=== PATIENT | male | born 1935 | race Caucasian/White ===

== ENCOUNTER 2016-11-29 06:23 | Observation (INO) | payer OTHER ==
[2016-11-29] MEDS ORDERED: FAMOTIDINE 20 MG TAB PO ONE (06:30)
[2016-11-29] MEDS ORDERED: NS 1,000 ML IV ONE (06:30)
[2016-11-29] MEDS ORDERED: ASPIRIN EC 325 MG TAB PO ONE ×2 (06:30→06:52)
[2016-11-29] MEDS ORDERED: diphenhydrAMINE 25 MG CAP PO ONE ×2 (06:30→06:52)
[2016-11-29] MEDS ORDERED: DIAZEPAM 5 MG TAB PO ONE (06:30)
[2016-11-29] MEDS ORDERED: DIAZEPAM 5 MG TAB ONE (06:52)
[2016-11-29] MEDS ORDERED: FAMOTIDINE 20 MG TAB ONE (06:52)
--- NOTE | 2016-11-29 06:55 | CPEKG ---
Heart Rate: 58 RR Interval: 1034 P-R Interval: 184 QRSD Interval: 108 QT Interval: 436 QTC Interval: 429 P [place]: 8 QRS [place]: -45 T Wave [place]: 109 EKG Severity - ABNORMAL ECG - EKG Impression: SINUS RHYTHM EKG Impression: VENTRICULAR PREMATURE COMPLEX EKG Impression: LAD, CONSIDER LEFT ANTERIOR FASCICULAR BLOCK EKG Impression: BORDERLINE T ABNORMALITIES, LATERAL LEADS Electronically Signed By: Beto Armstrong 29-Nov-2016 16:59:59
[2016-11-29 07:07] LABS: % IMMATURE GRANULYOCYTES 0.3 % (0.0-1.1); ABSOLUTE IMMATURE GRANULOCYTES 0.02 10^3/uL (0.00-0.10); ADD DIFF? NO; ADD MORPH? NO; ADD SCAN? NO; ATYPICAL LYMPHOCYTE FLAG 10 (0-99); FRAGMENT RBC FLAG 0 (0-99); HEMATOCRIT 47.7 % (40.0-51.0); HEMOGLOBIN 16.4 g/dL (13.7-17.5); LEFT SHIFT FLG 0 (0-99); LIPEMIA HEMOLYSIS FLAG 90 (0-99); MEAN CELL HEMOGLOBIN 29.4 pg (27.9-34.1); MEAN CELL HEMOGLOBIN CONCENTR. 34.4 g/dL (32.4-36.7); MEAN CELL VOLUME 85.6 fL (81.5-99.8); MEAN PLATELET VOLUME 9.1 fL (8.7-11.7); PLATELET CLUMPS FLAG 10 (0-99); PLATELET COUNT 253 10^3/uL (150-400); RED BLOOD CELL COUNT 5.57 10^6/uL (4.40-6.38); RED CELL DISTRIBUTION WIDTH 14.9 % (11.5-15.2)
[2016-11-29 07:08] LABS: INR 1.13 (0.83-1.16); PROTIME(PATIENT) 14.4 SEC (12.0-15.0)
[2016-11-29 07:09] LABS: ANION GAP 9 mEq/L (8-16); CALCIUM 8.8 mg/dL (8.5-10.4); CARBON DIOXIDE 25 mEq/l (22-31); CHLORIDE 107 mEq/L (97-110); CHOLESTEROL 181 mg/dL (140-220); CHOLESTEROL/HDL RATIO 4.76 RATIO (1.00-4.97); GLOMERULAR FILTRATION RATE > 60; GLUCOSE 93 mg/dL (70-100); HIGH DENSITY LIPOPROTEIN 38 mg/dL (40-65); LDL/HDL RATIO 3.24 RATIO (1.00-3.64); LOW DENSITY LIPOPROTEIN 123 mg/dL (80-100); MAGNESIUM 2.1 mg/dL (1.6-2.3); NON-HIGH DENSITY LIPOPROTEIN 143 mg/dL (90-129); POTASSIUM 3.9 mEq/L (3.5-5.2); SODIUM 141 mEq/L (134-144); TRIGLYCERIDE 101 mg/dL (40-150); VERY LOW DENSITY LIPOPROTEINS 20 mg/dL (8-25)
[2016-11-29] MEDS ORDERED: MIDAZOLAM 2 MG/2 ML VIAL ONE (07:39)
[2016-11-29] MEDS ORDERED: fentaNYL 100 MCG/2 ML INJ ONE (07:39)
[2016-11-29] MEDS ORDERED: HEPARIN 10,000 UNIT/10 ML MDV ONE (07:39)
[2016-11-29] MEDS ORDERED: VERAPAMIL 5 MG/2 ML VIAL ONE (07:39)
[2016-11-29] MEDS ORDERED: LIDOCAINE 1% 30 ML SDV ONE (07:39)
[2016-11-29] MEDS ORDERED: IOPAMIDOL (ISOVUE-370) 150 ML BTL IV ONE ×3 (07:40→09:32)
--- NOTE | 2016-11-29 08:41 | PDDXCAT ---
Diagnostic Cath Note - . Date: 11/29/16 Crew Team Member: Luis Indication: other (CCS Class II angina (bilateral arm pressure/pain that radiates into the neck and jaw)) - Procedure Access: right wrist (A plethysmography trace assisted Rolando's Test was used to document dual artery supply to the hand and index finger prior to access. Due to severe tortuosity in the brachiocephalic, we abandoned the right radial approach. The right groin was instead prepped and draped in a sterile fashion.) Procedure: left heart catheterization, coronary angiography, left ventriculogram , other (Intravascular Ultrasound (IVUS)) - Materials Left Heart Cath size: 5F Left Heart Cath materials: JL3.5, JL4.0, pigtail, other (Victorious 190 cm guide wire) - Findings-Left Heart Catheterization LM: 6 mm in size. Bifurcates into an LAD and circumflex system. There is a distal 30% obstruction. REZA III flow. IVUS of the left main did not reveal flow -limiting disease. LAD: 4.5 mm in size. The LAD is heavily calcified with evidence of diastreaming in the proximal portion. Maximum luminal stenosis of 45-50% in the mid LAD via angiography; however, IVUS was performed in the mid LAD revealed maximimal luminal stenosis of 72% with REZA III flow. LCX: 4 mm in size. No flow-limiting disease is identified with REZA III flow throughout. There are luminal irregularities consistent with atherosclerosis. RCA: Codominant (gives rise to the PDA), ~3.5 mm in size. No flow-limiting disease is identified with REZA III flow throughout. EDP: 24 mmHg LVEF: 65% Wall motion: No wall motion abnormalities were identified on LVG. The visualized protion of the thoracic aorta revealed three sinuses of Valsalva. There was no evidence of aneurysm or dissection. Complications: NONE Estimated blood loss: <50ml Closure method: Angioseal Assessment: Severe [place] vessel coronary artery disease with evidence of non- flow limiting left main, LCx and RCA disease. There is flow-limiting disease in the mid LAD (maximum luminal stenosis of 45-50% in the mid LAD angiographically , this was 72% via IVUS with REZA III flow). A 2.5 x 24 mm Synergy drug eluting stent was implanted in the mid LAD with 0% residual stenosis and REZA III flow. There was also a 30% distal left main lesion with REZA III flow that did not require intervention. The patient had a normal ejection fraction at 65% with no wall motion abnormalities identified on LVG. Plan: The patient will need to be on dual antiplatelet therapy for at least 1 year following stent implantation to reduce the risk of in-stent thrombosis. Fransico's hyperlipidemia should also be managed with statin therapy to include his current dose of Simvastatin. We would like to achieve a non-HDL cholesterol of less than 100mg/dL. Intervention: A 6 [place] JL4 guiding catheter was used for guide catheter support. A 0.014" MUBIurai guide wire was advanced across the mid LAD lesion (72% stenosis via IVUS) in question under direct fluoroscopic and angiographic guidance. A 2.5 x 24 mm Synergy drug eluting stent inflated to a maximum of 14 saundra of pressure. S/p stent implantation there was 0% residual stenosis with REZA III flow.
[2016-11-29] MEDS ORDERED: BIVALIRUDIN 250 MG/5 ML VIAL IV ONE (09:07)
[2016-11-29] MEDS ORDERED: CLOPIDOGREL BISULFATE 75 MG TAB ONE (09:36)
--- NOTE | 2016-11-29 10:02 | CPEKG ---
Heart Rate: 64 RR Interval: 938 P-R Interval: 204 QRSD Interval: 108 QT Interval: 448 QTC Interval: 463 P [place]: 28 QRS [place]: -58 T Wave [place]: -55 EKG Severity - ABNORMAL ECG - EKG Impression: SINUS RHYTHM EKG Impression: LAD, CONSIDER LEFT ANTERIOR FASCICULAR BLOCK EKG Impression: non-specific ST depression. Electronically Signed By: Beto Armstrong 29-Nov-2016 16:59:47
[2016-11-29] MEDS ORDERED: ATROPINE SULFATE 1 MG/10 ML SYR IVP PRN (10:28)
[2016-11-29] MEDS ORDERED: ONDANSETRON DISINTEGRATING 4 MG TAB PO PRN (10:28)
[2016-11-29] MEDS ORDERED: CLOPIDOGREL BISULFATE 75 MG TAB PO ONE (10:28)
[2016-11-29] MEDS ORDERED: ACETAMINOPHEN 325 MG TAB PO PRN (10:28)
[2016-11-29] MEDS ORDERED: NITROGLYCERIN 0.4 MG BTL SL PRN (10:28)
[2016-11-29] MEDS ORDERED: ONDANSETRON 4 MG/2 ML VIAL IVP PRN (10:28)
[2016-11-29] MEDS ORDERED: LORazepam 2 MG/ML INJ IVP PRN (10:28)
[2016-11-29] MEDS ORDERED: TEMAZEPAM 15 MG CAP PO PRN (10:28)
[2016-11-29] MEDS ORDERED: NS 1,000 ML IV SCH (10:30)
--- NOTE | 2016-11-29 14:34 | CPEKG ---
Heart Rate: 62 RR Interval: 968 P-R Interval: 196 QRSD Interval: 110 QT Interval: 412 QTC Interval: 419 P [place]: 26 QRS [place]: -50 T Wave [place]: 114 EKG Severity - ABNORMAL ECG - EKG Impression: SINUS RHYTHM EKG Impression: LAD, CONSIDER LEFT ANTERIOR FASCICULAR BLOCK Electronically Signed By: Beto Armstrong 29-Nov-2016 16:59:22
[2016-11-29] MEDS: FAMOTIDINE 20 MG TAB PO SCH (21:16)
[2016-11-30 04:59] LABS: % IMMATURE GRANULYOCYTES 0.3 % (0.0-1.1); ABSOLUTE IMMATURE GRANULOCYTES 0.02 10^3/uL (0.00-0.10); ADD DIFF? NO; ADD MORPH? NO; ADD SCAN? NO; ATYPICAL LYMPHOCYTE FLAG 20 (0-99); FRAGMENT RBC FLAG 0 (0-99); HEMOGLOBIN 15.5 g/dL (13.7-17.5); LEFT SHIFT FLG 0 (0-99); LIPEMIA HEMOLYSIS FLAG 90 (0-99); MEAN CELL HEMOGLOBIN 29.8 pg (27.9-34.1); MEAN CELL HEMOGLOBIN CONCENTR. 34.4 g/dL (32.4-36.7); MEAN CELL VOLUME 86.4 fL (81.5-99.8); MEAN PLATELET VOLUME 9.3 fL (8.7-11.7); PLATELET CLUMPS FLAG 10 (0-99); PLATELET COUNT 196 10^3/uL (150-400); RED BLOOD CELL COUNT 5.21 10^6/uL (4.40-6.38); RED CELL DISTRIBUTION WIDTH 14.9 % (11.5-15.2)
[2016-11-30 05:05] LABS: ANION GAP 7 mEq/L (8-16); ASPARTATE AMINOTRANSFERASE 20 IU/L (17-59); BILIRUBIN,TOTAL 0.8 mg/dL (0.1-1.4); CALCIUM 8.5 mg/dL (8.5-10.4); CARBON DIOXIDE 26 mEq/l (22-31); CHLORIDE 108 mEq/L (97-110); GLOMERULAR FILTRATION RATE > 60; GLUCOSE 89 mg/dL (70-100); LACTATE DEHYDROGENASE 448 IU/L (313-618); MAGNESIUM 1.9 mg/dL (1.6-2.3); POTASSIUM 4.2 mEq/L (3.5-5.2); SODIUM 141 mEq/L (134-144)
[2016-11-30] MEDS: FAMOTIDINE 20 MG TAB PO SCH (08:02)
[2016-11-30 08:14] VITALS: BP 138/83; PULSE 65; RESP 16; TEMP 98.1; O2SAT 96
[2016-11-30] MEDS ORDERED: CLOPIDOGREL BISULFATE 75 MG TAB PO SCH (09:00)
[2016-11-30] MEDS ORDERED: ASPIRIN EC 325 MG TAB PO SCH (09:00)
[2016-11-30] MEDS ORDERED: Herbals/Supplements -Info Only PO SCH (09:00)
--- NOTE | 2016-11-30 09:00 | CPEKG ---
Heart Rate: 62 RR Interval: 968 P-R Interval: 192 QRSD Interval: 108 QT Interval: 384 QTC Interval: 390 P [place]: 20 QRS [place]: -57 T Wave [place]: 145 EKG Severity - ABNORMAL ECG - EKG Impression: SINUS RHYTHM EKG Impression: LAD, CONSIDER LEFT ANTERIOR FASCICULAR BLOCK EKG Impression: Mild ST depression laterally. Electronically Signed By: Beto Armstrong 30-Nov-2016 17:36:46
--- NOTE | 2016-11-30 09:58 | GDS ---
[f rep st] DISCHARGE SUMMARY PRIMARY HAND MOLDER AND CASTER: Dr. Cristian Smith. DISCHARGE DIAGNOSES: 1. Coronary artery disease with a 72% stenosis to the mid left anterior descending status post stent ing with a 2.5 x 24 mm synergy drug-eluting stent. 2. Hyperlipidemia. 3. Hypertension. HOSPITAL COURSE: For detailed H and P, please see prior dictation. Briefly, Fransico Cohen is a 81-yea r-old male with a history of coronary artery disease, hyperlipidemia, hypertension and obstructive sl eep apnea. He presented to our office on November 28 complaining of 1 episode of chest pain which r adiated to his back, arms, neck and jaw. This occurred while he was shoveling snow in the backyard. His pain dissipated on its own, and he did not present to the emergency room at that time. He was s een in our office the following day, and due to his symptoms and abnormal EKG, an angiogram was recom mended. This was performed by Dr. Cristian Smith on November 29, 2016. He was found to have a 72% sten osis within the mid LAD which was stented with a 2.5 x 24 mm Synergy drug-eluting stent. The left ci rcumflex and the right coronary artery had minimal coronary disease. The left main had a 30% stenosi s. The following day, the patient denied any chest discomfort. He was monitored on telemetry and re mained in normal sinus rhythm. His EKG the day of discharge revealed normal sinus rhythm with T-wave flattening diffusely. He also had evidence of a left anterior fascicular block. PHYSICAL EXAMINATION: GENERAL: Patient appears in no acute distress. VITALS: Blood pressure 138/8 3, heart rate 65, oxygen saturation 96% on room air. LUNGS: Clear to auscultation. No wheezes, rho nchi, or crackles auscultated. CARDIAC: Regular rate and rhythm without any significant murmurs, ru bs or gallops appreciated. EXTREMITIES: Right wrist and right groin, where access was obtained for the angiogram, are both clean and intact without any evidence of infection or hematoma. LABORATORY: Total cholesterol 181, LDL 123, HDL 38. DISCHARGE MEDICATIONS: Ramipril 2.5 mg daily, Plavix 75 mg daily, aspirin 325 mg daily, simvastatin 20 mg daily, herbal supplement daily. PLAN: Fransico is currently stable and ready for discharge home. He has been given wrist and groin pre cautions. He will follow up in our office as scheduled in 1-2 weeks. He admits to not taking his ra mipril or simvastatin for the last few months. His LDL is elevated at 123. He will resume both rami pril and simvastatin 20 mg daily. He will need a repeat fasting lipid profile and liver function jimenez ts in 3 months. /[id number]/MODL
== END 2016-11-30 11:27 | disposition home or self-care (01) ==
LOC: FCATH 06:23 → F2W 09:53
PROVIDERS: ADMIT Internal Medicine Cardiovascular Disease; ATTEND Internal Medicine Cardiovascular Disease
PROC: B2151ZZ Fluoroscopy of Left Heart using Low Osmolar Contrast (ICD-10-PCS; principal; 2016-11-29)
PROC: 027034Z Dilation of Coronary Artery, One Artery with Drug-eluting Intraluminal Device, Percutaneous Approach (ICD-10-PCS; principal; 2016-11-29)
PROC: B2111ZZ Fluoroscopy of Multiple Coronary Arteries using Low Osmolar Contrast (ICD-10-PCS; principal; 2016-11-29)
PROC: 4A023N7 Measurement of Cardiac Sampling and Pressure, Left Heart, Percutaneous Approach (ICD-10-PCS; principal; 2016-11-29)
PROC: B240ZZ3 Ultrasonography of Single Coronary Artery, Intravascular (ICD-10-PCS; principal; 2016-11-29)
DX: I25.119 Atherosclerotic heart disease of native coronary artery with unspecified angina pectoris (principal); E78.5 Hyperlipidemia, unspecified; I10 Essential (primary) hypertension; G47.33 Obstructive sleep apnea (adult) (pediatric); Z79.02 Long term (current) use of antithrombotics/antiplatelets; Z79.82 Long term (current) use of aspirin
CPT/HCPCS: 92978; 93005; 93458; C1753; C1760; C1769; C1874; C1887; C9600; G0378; J0583; J1644; J2250; J3010; Q9967

== ENCOUNTER → 2017-09-10 | Outpatient (CLI) | payer OTHER ==
[~2017-09-10] MED LIST: IOPAMIDOL (ISOVUE 370) 100 ML BTL IV ONE
== END ==
LOC: FIMAGING 10:35
PROVIDERS: ATTEND Internal Medicine Cardiovascular Disease
DX: G45.9 Transient cerebral ischemic attack, unspecified (principal); R51 Headache; H53.8 Other visual disturbances
CPT/HCPCS: 70470; 70498; Q9967

== ENCOUNTER 2018-08-04 09:16 | Day surgery (SDC) | payer OTHER ==
[2018-08-04] MEDS ORDERED: FAMOTIDINE 20 MG TAB PO ONE (09:20)
[2018-08-04] MEDS ORDERED: DIAZEPAM 5 MG TAB PO ONE (09:20)
[2018-08-04] MEDS ORDERED: NS 1,000 ML IV ONE (09:20)
[2018-08-04] MEDS ORDERED: ASPIRIN EC 325 MG TAB PO ONE (09:20)
[2018-08-04] MEDS ORDERED: diphenhydrAMINE 25 MG CAP PO ONE (09:20)
--- NOTE | 2018-08-04 09:32 | PDPROPOC ---
Sedation Plan of Care Sedation Plan of Care: vital signs stable, mental status noted, patient educated of risks, benefits, alternatives, patient can tolerate sedation ASA Classification: ASA 3 Planned drugs: fentanyl, midazolam Mallampati Score: Class 2 Mallampati Reference Image: Patient passed 3-3-2 rule?: Yes
--- NOTE | 2018-08-04 09:33 | PDHPUP ---
History & Physical Update H&P update statement: This history and physical update is based on an assessment of the patient which was completed after admission or registration (within 24 hours), but prior to the surgery/procedure. H&P update: H&P reviewed & patient examined, no change in patient's condition since H&P completed
[2018-08-04] MEDS ORDERED: fentaNYL 100 MCG/2 ML INJ ONE (10:10)
[2018-08-04] MEDS ORDERED: LIDOCAINE 1% 300 MG/30 ML SDV ONE (10:10)
[2018-08-04] MEDS ORDERED: HEPARIN 10,000 UNIT/10 ML MDV (1,000 UNIT/ML) ONE (10:11)
[2018-08-04] MEDS ORDERED: IOPAMIDOL (ISOVUE-370) 150 ML BTL IV ONE (10:11)
[2018-08-04] MEDS ORDERED: MIDAZOLAM 2 MG/2 ML VIAL ONE (10:11)
[2018-08-04] MEDS ORDERED: VERAPAMIL 5 MG/2 ML VIAL ONE (10:11)
[2018-08-04 10:16] LABS: PLATELET COUNT 197 10^3/uL (150-400)
--- NOTE | 2018-08-04 10:37 | CPEKG ---
Test Reason : OPEN Blood Pressure : / mmHG Vent. Rate : 049 BPM Atrial Rate : 049 BPM P-R Int : 189 ms QRS Dur : 115 ms QT Int : 477 ms P-R-T Axes : 016 -45 -11 degrees QTc Int : 431 ms Sinus bradycardia Nonspecific IVCD with LAD Borderline T abnormalities, diffuse leads Confirmed by Young Canseco ([id number]) on 08/04/2018 10:37:08 AM Referred By: Confirmed By:Young Canseco
[2018-08-04 10:41] LABS: INR 1.11 (0.83-1.16)
[2018-08-04 10:47] LABS: PROTIME(PATIENT) 14.5 SEC (12.0-15.0)
--- NOTE | 2018-08-04 11:05 | PDDXCAT ---
Diagnostic Cath Note - . Date: 08/04/18 [place] Operator: Luis Indication: CCC Class III and IV angina on medical treatment - Procedure Access: right groin Procedure: left heart catheterization - Materials Left Heart Cath size: 5F Left Heart Cath materials: JL4.0, JR4.0, pigtail - Findings-Left Heart Catheterization LM: 6 mm in size trifurcates into LAD, ramus and circumflex system. The distal left main has a 40-45% lesion in 2 views. In the other views the left main appears to be widely patent with REZA III flow. LAD: 3.5mm in size. Previously stented mid section is widely patent. REZA III flow. The distal LAD is quite small and is likely repsonsible for a supply demand mismatch and the pateint's clinical angina. LCX: 3.5 mm in size and REZA III flow throughout. No flow limiting obstruction is identified. RCA: Dominant vessel 3.5 mm vessel in size and gives rise to a PDA as well as posterolateral branch. No flow limiting obstruction is identified. Luminal irregularity consistent with atherosclerosis is present, maximal luminal stenosis is 30% proximally. REZA III flow is present. Ramus: 1mm in size, no flow limiting obstruction dissection or thrombus is identified. REZA III flow. EDP: 25mmHg LVEF: 65% with aorta that is upper limits of normal in size. 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 No significant mitral regurgitation is noted. Wall motion: No resting segmental wall motion abnormalities are identified. - Findings-Right Heart Catheterization AO: 117/79/95 Complications: None Estimated blood loss: <50ml Closure method: Angioseal Assessment: The stent of the LAD is sidely patent. The patient has moderate distal left main disease. This does not appear to limit blood flow as the LAD is quite small distally and is the likely reason for the patient's clinical angina. I do not believe he has a lesion that would be helped with revascularization. I think that surgery (CABG) would be unlikely to be of significant benefit because of the small size of the distal LAD, and would definitely carry significant risk. Stenting the left main before it becomes flow limiting would relegate him to lobsterman if not indefinite dual antiplatelet therapy. Plan: The patient should be continued on medical management with consideration for the addition of long acting nitrates, prn sublingual nitroglycerin as well as Ranexa to treat his clinical angina.
[2018-08-04] MEDS ORDERED: ONDANSETRON 4 MG/2 ML VIAL IVP PRN (11:45)
[2018-08-04] MEDS ORDERED: NITROGLYCERIN 0.4 MG BTL SL PRN (11:45)
[2018-08-04] MEDS ORDERED: OXYCODONE/APAP 5/325 TAB PO PRN (11:45)
[2018-08-04] MEDS ORDERED: HYDROCODONE/APAP 5/325 TAB PO PRN (11:45)
[2018-08-04] MEDS ORDERED: ATROPINE SULFATE 1 MG/10 ML SYR IVP PRN (11:45)
== END 2018-08-04 16:05 | disposition home or self-care (01) ==
LOC: FCATH 09:16
PROVIDERS: ATTEND Internal Medicine Cardiovascular Disease
PROC: 4A023N7 Measurement of Cardiac Sampling and Pressure, Left Heart, Percutaneous Approach (ICD-10-PCS; principal; 2018-08-04)
DX: I25.110 Atherosclerotic heart disease of native coronary artery with unstable angina pectoris (principal); E78.5 Hyperlipidemia, unspecified; I10 Essential (primary) hypertension; G47.33 Obstructive sleep apnea (adult) (pediatric); Z95.5 Presence of coronary angioplasty implant and graft
CPT/HCPCS: C1760; J1644; J2250; J3010; Q9967